=== PATIENT | male | born 1965 | race Caucasian/White ===

== ENCOUNTER 2022-09-25 14:26 | Emergency (ER) | payer MEDICARE, SELFPAY ==
[2022-09-25] VITALS (46 sets, daily range): BP systolic 118–161; BP diastolic 60–93; PULSE 42–72; RESP 12–32; TEMP 36.4; O2SAT 94–99; BMI 24.6
--- NOTE | 2022-09-25 14:34 | DI.RAD.S_ITS ---
PROCEDURE: XR CHEST 1V INDICATIONS: chest pain TECHNIQUE: One view of the chest was acquired. COMPARISON: None. FINDINGS: Surgical changes and devices: None. Lungs and pleura: Lungs are clear. No pleural effusions or pneumothorax. Mediastinum: Mediastinal contours appear normal. Heart size is normal. Bones and chest wall: No suspicious bony lesions. Overlying soft tissues appear unremarkable. IMPRESSION: No acute cardiopulmonary disease. Dictated by: Nas Mccord M.D. on 09/25/2022 at 15:51 Approved by: Nas Mccord M.D. on 09/25/2022 at 15:52
--- NOTE | 2022-09-25 14:52 | ED.CHESTPAIN ---
HPI - Chest Pain <Mehul Mott DO - Last Filed: 09/26/22 18:26> General Chief Complaint: Chest Pain Stated Complaint: Sent by cardioligst chest pain t-4 Time Seen by Provider: 09/25/22 14:34 Source: patient Mode of arrival: Ambulatory History of Present Illness HPI narrative: 57-year-old male smoker with history of hypertension recently diagnosed coronary artery disease presents with chest pain. He has been having increasing episodes of chest pain for least the past few weeks and had recently been evaluated by Cardiology from [place] and had a cardiac CT demonstrating findings consistent with the need for stenting. He is scheduled for heart catheterization and stents in a few days. He states that he is had increasing chest pressure and heaviness with exertion over the past few days. He now is having pain with increasing frequency while at rest. He does not take any aspirin or nitroglycerin. He is currently having 1 or 2/10 chest pain. When present he gets short of breath and diaphoretic. He was raking some leaves yesterday and developed significant chest pressure that resolved with time and rest. He denies nausea or vomiting. He denies any recent trauma or injury Related Data Home Medications Medication Instructions Recorded Confirmed rosuvastatin 40 mg tablet 40 mg PO BEDTIME 09/25/22 09/25/22 Allergies Allergy/AdvReac Type Severity Reaction Status Date / Time No Known Drug Allergies Allergy Verified 09/25/22 14:33 Review of Systems <Mehul Mott DO - Last Filed: 09/26/22 18:26> Review of Systems Narrative: GENERAL: See HPI HEENT: Denies sinus pain, ear pain, sore throat, difficulty swallowing, dizziness. RESPIRATORY: See HPI CARDIOVASCULAR: See HPI GASTROINTESTINAL: See HPI : Denies dysuria, frequency, incontinence, hematuria, urinary retention. MUSCULOSKELETAL: denies weakness, joint pain, or bony pain SKIN: Denies rash, skin lesions, or other NEUROLOGIC: Denies weakness, headache, numbness, change in speech, confusion, seizures, incoordination. PSYCHIATRIC: No concerning psychosocial issues. 12 point review of systems is negative except for those stated above Patient History <Mehul Mott DO - Last Filed: 09/26/22 18:26> Social History Smoking Status: Current every day smoker Smoking Status: Current every day smoker tobacco type: cigarettes Substance Use Type: does not use Exam <Mehul Mott DO - Last Filed: 09/26/22 18:26> Narrative Exam Narrative: GENERAL: [57] year old patient appears stated age. Well-developed patient, in mild distress. HEAD: Atraumatic. Normocephalic. EYES: Pupils equal round and reactive. Extraocular motions intact. No scleral icterus. No injection or drainage. ENT: Nose without bleeding, purulent drainage. Throat without erythema, tonsillar hypertrophy or exudate. Airway patent. NECK: Trachea midline. Non tender CARDIOVASCULAR: Regular rate and rhythm without murmurs, gallops, or rubs. RESPIRATORY: Clear to auscultation. Breath sounds equal bilaterally. No wheezes, rales, or rhonchi. GASTROINTESTINAL: Abdomen soft, non-tender, nondistended. EXTREMITIES: No edema or joint tenderness. BACK: Nontender without deformity or crepitance. No flank tenderness. NEURO: AOx3. SKIN: No rash or erythema of visible areas Initial Vital Signs Initial Vital Signs: Vital Signs Temperature 97.6 F 09/25/22 14:33 Pulse Rate 72 09/25/22 14:33 Respiratory Rate 18 09/25/22 14:33 Blood Pressure 153/92 H 09/25/22 14:33 Pulse Oximetry 98 09/25/22 14:33 Oxygen Delivery Method 09/25/22 14:33 <Sarah Ivory DO - Last Filed: 09/26/22 19:00> Initial Vital Signs Initial Vital Signs: Vital Signs Temperature 97.6 F 09/25/22 14:33 Pulse Rate 72 09/25/22 14:33 Respiratory Rate 18 09/25/22 14:33 Blood Pressure 153/92 H 09/25/22 14:33 Pulse Oximetry 98 09/25/22 14:33 Oxygen Delivery Method 09/25/22 14:33 Scores <DO Catherine Luna Last Filed: 09/26/22 18:26> HEART Score Heart Score history: Highly Suspicious Heart Score EKG: Non-Specific repolarization disturbance Heart Score Age: 45-64 years old Heart Score risk factors: > 3 risk factors or hx of atherosclerotic disease Heart Score troponin: < or = to normal limit Heart Score Total: 6 <Sarah Ivory DO - Last Filed: 09/26/22 19:00> HEART Score Heart Score Total: 6 Course <Mehulelly Mott DO - Last Filed: 09/26/22 18:26> Orders Ordered: ED Orders 09/26/22 12:36 Troponin & CK Cardiac Panel Stat 09/26/22 13:30 Partial Thromboplastin Time Q6H Sodium Chloride (Normal Saline 0.9%) 1,000 mls @ 150 mls/hr IV CONT [facility] Last Admin: 09/25/22 18:39 Dose: Not Given Documented By: ARMAAN Heparin Sodium/Dextrose (Heparin Drip) 25,000 unit in 500 mls @ 20 mls/hr IV CONT [facility]; Protocol Last Titration: 09/26/22 18:30 Dose: 1,000 units/hr, 20 mls/hr Documented By: Admin: 09/25/22 18:32 Dose: 1,000 units/hr, 20 mls/hr Documented By: ARMAAN Nitroglycerin (Nitroglycerin 0.4 Mg Sl Tab) 0.4 mg SL [id number] PRN PRN Reason: Chest Pain Last Admin: 09/25/22 18:29 Dose: 0.4 mg Documented By: Admin: 09/25/22 15:30 Dose: 0.4 mg Documented By: ARMAAN Discontinued Medications Aspirin (Aspirin 81 Mg Chew Tab) 324 mg PO NOW ONE Stop: 09/25/22 15:00 Last Admin: 09/25/22 15:27 Dose: 324 mg Documented By: ARMAAN Heparin Sodium (Porcine) (Heparin 5,000 Unit/Ml Vial) 5,000 unit IV NOW ONE Stop: 09/25/22 18:04 Last Admin: 09/25/22 18:31 Dose: 5,000 unit Documented By: ARMAAN Nitroglycerin (Nitroglycerin Oint 1 Inch/Gm Oint...G.) 0.5 inch TOP NOW ONE Stop: 09/25/22 18:48 Last Admin: 09/25/22 19:11 Dose: 0.5 inch Documented By: ARLINE Reevaluation(s) Reevaluation #1: Patient did have another quick episode of chest pain and this resolved with a single sublingual nitro, nitro placed ordered Consultations Consultation #1: call to [facility], he was quick to request patient be placed on heparin and initiate transfer process after discussion of patient's history and physical exam. They currently have no beds but are working on [facility]. Patient made aware, heparin ordered Vital Signs Vital signs: Vital Signs - 8 hr 09/26/22 11:00 09/26/22 11:15 09/26/22 11:30 Pulse Rate 46 L 52 L 46 L Respiratory Rate 22 23 19 Blood Pressure 09/26/22 11:45 09/26/22 12:00 09/26/22 12:15 Pulse Rate 48 L 49 L 41 L Respiratory Rate 18 25 H 17 Blood Pressure 09/26/22 12:30 09/26/22 12:45 09/26/22 13:00 Pulse Rate 40 L 50 L 41 L Respiratory Rate 21 23 20 Blood Pressure 09/26/22 13:15 09/26/22 13:30 09/26/22 13:45 Pulse Rate 50 L 51 L 46 L Respiratory Rate 22 28 H 22 Blood Pressure 09/26/22 14:00 09/26/22 14:15 09/26/22 14:30 Pulse Rate 48 L 48 L 46 L Respiratory Rate 22 21 24 Blood Pressure 09/26/22 14:45 09/26/22 15:00 09/26/22 15:15 Pulse Rate 47 L 46 L 47 L Respiratory Rate 20 24 29 H Blood Pressure 09/26/22 15:30 09/26/22 15:45 09/26/22 16:00 Pulse Rate 47 L 47 L 48 L Respiratory Rate 31 H 23 26 H Blood Pressure 09/26/22 16:15 09/26/22 16:30 09/26/22 16:58 Pulse Rate 41 L 54 L 57 L Respiratory Rate 24 24 17 Blood Pressure 09/26/22 17:00 09/26/22 17:15 09/26/22 17:30 Pulse Rate 45 L 47 L 46 L Respiratory Rate 18 21 24 Blood Pressure 09/26/22 17:45 09/26/22 18:00 09/26/22 18:15 Pulse Rate 45 L 47 L 46 L Respiratory Rate 19 20 18 Blood Pressure 09/26/22 18:32 Pulse Rate Respiratory Rate Blood Pressure 121/74 <Sarah Ivory, - Last Filed: 09/26/22 19:00> Orders Ordered: ED Orders 09/26/22 12:36 Troponin & CK Cardiac Panel Stat 09/26/22 13:30 Partial Thromboplastin Time Q6H Sodium Chloride (Normal Saline 0.9%) 1,000 mls @ 150 mls/hr IV CONT [facility] Last Admin: 09/25/22 18:39 Dose: Not Given Documented By: ARMAAN Heparin Sodium/Dextrose (Heparin Drip) 25,000 unit in 500 mls @ 20 mls/hr IV CONT [facility]; Protocol Last Titration: 09/26/22 18:30 Dose: 1,000 units/hr, 20 mls/hr Documented By: Admin: 09/25/22 18:32 Dose: 1,000 units/hr, 20 mls/hr Documented By: ARMAAN Nitroglycerin (Nitroglycerin 0.4 Mg Sl Tab) 0.4 mg SL [id number] PRN PRN Reason: Chest Pain Last Admin: 09/25/22 18:29 Dose: 0.4 mg Documented By: Admin: 09/25/22 15:30 Dose: 0.4 mg Documented By: ARMAAN Discontinued Medications Aspirin (Aspirin 81 Mg Chew Tab) 324 mg PO NOW ONE Stop: 09/25/22 15:00 Last Admin: 09/25/22 15:27 Dose: 324 mg Documented By: ARMAAN Heparin Sodium (Porcine) (Heparin 5,000 Unit/Ml Vial) 5,000 unit IV NOW ONE Stop: 09/25/22 18:04 Last Admin: 09/25/22 18:31 Dose: 5,000 unit Documented By: ARMAAN Nitroglycerin (Nitroglycerin Oint 1 Inch/Gm Oint...G.) 0.5 inch TOP NOW ONE Stop: 09/25/22 18:48 Last Admin: 09/25/22 19:11 Dose: 0.5 inch Documented By: ARLINE Vital Signs Vital signs: Vital Signs - 8 hr 09/26/22 11:00 09/26/22 11:15 09/26/22 11:30 Pulse Rate 46 L 52 L 46 L Respiratory Rate 22 23 19 Blood Pressure 09/26/22 11:45 09/26/22 12:00 09/26/22 12:15 Pulse Rate 48 L 49 L 41 L Respiratory Rate 18 25 H 17 Blood Pressure 09/26/22 12:30 09/26/22 12:45 09/26/22 13:00 Pulse Rate 40 L 50 L 41 L Respiratory Rate 21 23 20 Blood Pressure 09/26/22 13:15 09/26/22 13:30 09/26/22 13:45 Pulse Rate 50 L 51 L 46 L Respiratory Rate 22 28 H 22 Blood Pressure 09/26/22 14:00 09/26/22 14:15 09/26/22 14:30 Pulse Rate 48 L 48 L 46 L Respiratory Rate 22 21 24 Blood Pressure 09/26/22 14:45 09/26/22 15:00 09/26/22 15:15 Pulse Rate 47 L 46 L 47 L Respiratory Rate 20 24 29 H Blood Pressure 09/26/22 15:30 09/26/22 15:45 09/26/22 16:00 Pulse Rate 47 L 47 L 48 L Respiratory Rate 31 H 23 26 H Blood Pressure 09/26/22 16:15 09/26/22 16:30 09/26/22 16:58 Pulse Rate 41 L 54 L 57 L Respiratory Rate 24 24 17 Blood Pressure 09/26/22 17:00 09/26/22 17:15 09/26/22 17:30 Pulse Rate 45 L 47 L 46 L Respiratory Rate 18 21 24 Blood Pressure 09/26/22 17:45 09/26/22 18:00 09/26/22 18:15 Pulse Rate 45 L 47 L 46 L Respiratory Rate 19 20 18 Blood Pressure 09/26/22 18:32 Pulse Rate Respiratory Rate Blood Pressure 121/74 MDM - Chest Pain <Mehul Mott DO - Last Filed: 09/26/22 18:26> Lab Data Result diagrams: 09/25/22 15:05 09/25/22 15:05 Labs: Lab Results 09/25/22 09/25/22 09/25/22 Range/Units 15:00 15:05 15:05 WBC 7.9 (4.5-11.0) X10^3/uL RBC 4.92 (4.5-5.9) X10^6/uL Hgb 15.4 (13.5-17.5) g/dL Hct 45.6 (41-53) % MCV 92.8 (80-100) fL MCH 31.3 (26-34) PG MCHC 33.7 (30-36) % RDW 13.5 (11.6-14.8) % Plt Count 148 L (150-400) X10^3/uL Neut % (Auto) 74.3 (50-75) % Lymph % (Auto) 18.0 L (25-40) % Kimball % (Auto) 6.0 (3-14) % Eos % (Auto) 0.7 L (2-4) % Baso % (Auto) 1.0 (0-2) % Neut # (Auto) 5800 (1884-4384) /uL Lymph # (Auto) 1400 (7952-6494) /uL Kimball # (Auto) 500 (0-900) /uL Eos # (Auto) 100 (0-450) /uL Baso # (Auto) 100 (0-100) /uL ESR 2 (0-15) MM/HR PT 12.0 (10.1-12.7) SECONDS INR 1.0 (0.9-1.3) APTT 30 (26-36) SECONDS D-Dimer 235 (<500) ng/ml Sodium (137-145) mmol/L Potassium (3.4-5.1) mmol/L Chloride (98-107) mmol/L Carbon Dioxide (22-32) mmol/L BUN (9-20) mg/dL Creatinine (0.66-1.25) mg/dL Estimated GFR (>60) mL/min BUN/Creatinine Ratio (6-22) Glucose (70-100) mg/dL Calcium (8.4-10.2) mg/dL Total Bilirubin (0.2-1.3) mg/dL AST (17-59) IU/L ALT (<50) IU/L Alkaline Phosphatase (38-126) U/L Total Creatine Kinase (55-170) U/L CK-MB (CK-2) CK-MB (CK-2) Rel Index Troponin I (0.01-0.034) ng/mL C-Reactive Protein (<1.0) mg/dL NT-Pro-B Natriuret Pep (<125) pg/mL Total Protein (6.3-8.2) g/dL Albumin (3.5-5.0) g/dL Globulin (1.7-4.1) g/dL Albumin/Globulin Ratio (1.0-2.8) Lipase (23-300) U/L Procalcitonin (<0.5) ng/mL SARS-CoV-2 (PCR) (Negative) 12/09/25/22 09/25/22 Range/Units 15:05 15:05 15:05 WBC (4.5-11.0) X10^3/uL RBC (4.5-5.9) X10^6/uL Hgb (13.5-17.5) g/dL Hct (41-53) % MCV (80-100) fL MCH (26-34) PG MCHC (30-36) % RDW (11.6-14.8) % Plt Count (150-400) X10^3/uL Neut % (Auto) (50-75) % Lymph % (Auto) (25-40) % Kimball % (Auto) (3-14) % Eos % (Auto) (2-4) % Baso % (Auto) (0-2) % Neut # (Auto) (3424-7312) /uL Lymph # (Auto) (3215-6801) /uL Kimball # (Auto) (0-900) /uL Eos # (Auto) (0-450) /uL Baso # (Auto) (0-100) /uL ESR (0-15) MM/HR PT (10.1-12.7) SECONDS INR (0.9-1.3) APTT (26-36) SECONDS D-Dimer (<500) ng/ml Sodium 140 (137-145) mmol/L Potassium 4.2 (3.4-5.1) mmol/L Chloride 105 (98-107) mmol/L Carbon Dioxide 27 (22-32) mmol/L BUN 7 L (9-20) mg/dL Creatinine 0.84 (0.66-1.25) mg/dL Estimated GFR > 60 (>60) mL/min BUN/Creatinine Ratio 8.3 (6-22) Glucose 88 (70-100) mg/dL Calcium 9.1 (8.4-10.2) mg/dL Total Bilirubin 0.7 (0.2-1.3) mg/dL AST 20 (17-59) IU/L ALT 22 (<50) IU/L Alkaline Phosphatase 61 (38-126) U/L Total Creatine Kinase 71 (55-170) U/L CK-MB (CK-2) TNP CK-MB (CK-2) Rel Index TNP Troponin I < 0.012 (0.01-0.034) ng/mL C-Reactive Protein < 0.5 (<1.0) mg/dL NT-Pro-B Natriuret Pep 42 (<125) pg/mL Total Protein 7.8 (6.3-8.2) g/dL Albumin 4.7 (3.5-5.0) g/dL Globulin 3.1 (1.7-4.1) g/dL Albumin/Globulin Ratio 1.5 (1.0-2.8) Lipase 52 (23-300) U/L Procalcitonin 0.05 (<0.5) ng/mL SARS-CoV-2 (PCR) Negative (Negative) 09/25/22 09/26/22 09/26/22 Range/Units 18:27 00:26 06:15 WBC (4.5-11.0) X10^3/uL RBC (4.5-5.9) X10^6/uL Hgb (13.5-17.5) g/dL Hct (41-53) % MCV (80-100) fL MCH (26-34) PG MCHC (30-36) % RDW (11.6-14.8) % Plt Count (150-400) X10^3/uL Neut % (Auto) (50-75) % Lymph % (Auto) (25-40) % Kimball % (Auto) (3-14) % Eos % (Auto) (2-4) % Baso % (Auto) (0-2) % Neut # (Auto) (4530-7922) /uL Lymph # (Auto) (7834-8693) /uL Kimball # (Auto) (0-900) /uL Eos # (Auto) (0-450) /uL Baso # (Auto) (0-100) /uL ESR (0-15) MM/HR PT (10.1-12.7) SECONDS INR (0.9-1.3) APTT 71 H D 55 H D (26-36) SECONDS D-Dimer (<500) ng/ml Sodium (137-145) mmol/L Potassium (3.4-5.1) mmol/L Chloride (98-107) mmol/L Carbon Dioxide (22-32) mmol/L BUN (9-20) mg/dL Creatinine (0.66-1.25) mg/dL Estimated GFR (>60) mL/min BUN/Creatinine Ratio (6-22) Glucose (70-100) mg/dL Calcium (8.4-10.2) mg/dL Total Bilirubin (0.2-1.3) mg/dL AST (17-59) IU/L ALT (<50) IU/L Alkaline Phosphatase (38-126) U/L Total Creatine Kinase 64 (55-170) U/L CK-MB (CK-2) TNP CK-MB (CK-2) Rel Index TNP Troponin I < 0.012 (0.01-0.034) ng/mL C-Reactive Protein (<1.0) mg/dL NT-Pro-B Natriuret Pep (<125) pg/mL Total Protein (6.3-8.2) g/dL Albumin (3.5-5.0) g/dL Globulin (1.7-4.1) g/dL Albumin/Globulin Ratio (1.0-2.8) Lipase (23-300) U/L Procalcitonin (<0.5) ng/mL SARS-CoV-2 (PCR) (Negative) 09/26/22 09/26/22 Range/Units 12:36 13:30 WBC (4.5-11.0) X10^3/uL RBC (4.5-5.9) X10^6/uL Hgb (13.5-17.5) g/dL Hct (41-53) % MCV (80-100) fL MCH (26-34) PG MCHC (30-36) % RDW (11.6-14.8) % Plt Count (150-400) X10^3/uL Neut % (Auto) (50-75) % Lymph % (Auto) (25-40) % Kimball % (Auto) (3-14) % Eos % (Auto) (2-4) % Baso % (Auto) (0-2) % Neut # (Auto) (4733-0398) /uL Lymph # (Auto) (0715-3215) /uL Kimball # (Auto) (0-900) /uL Eos # (Auto) (0-450) /uL Baso # (Auto) (0-100) /uL ESR (0-15) MM/HR PT (10.1-12.7) SECONDS INR (0.9-1.3) APTT 51 H (26-36) SECONDS D-Dimer (<500) ng/ml Sodium (137-145) mmol/L Potassium (3.4-5.1) mmol/L Chloride (98-107) mmol/L Carbon Dioxide (22-32) mmol/L BUN (9-20) mg/dL Creatinine (0.66-1.25) mg/dL Estimated GFR (>60) mL/min BUN/Creatinine Ratio (6-22) Glucose (70-100) mg/dL Calcium (8.4-10.2) mg/dL Total Bilirubin (0.2-1.3) mg/dL AST (17-59) IU/L ALT (<50) IU/L Alkaline Phosphatase (38-126) U/L Total Creatine Kinase 54 L (55-170) U/L CK-MB (CK-2) TNP CK-MB (CK-2) Rel Index TNP Troponin I < 0.012 (0.01-0.034) ng/mL C-Reactive Protein (<1.0) mg/dL NT-Pro-B Natriuret Pep (<125) pg/mL Total Protein (6.3-8.2) g/dL Albumin (3.5-5.0) g/dL Globulin (1.7-4.1) g/dL Albumin/Globulin Ratio (1.0-2.8) Lipase (23-300) U/L Procalcitonin (<0.5) ng/mL SARS-CoV-2 (PCR) (Negative) ECG Data Interpretation: [1506] EKG is normal sinus rhythm rate [ 73] and free of any signs of ischemia or ectopy. No ST segmental elevation or depression. No T wave inversions MDM Narrative Medical decision making narrative: Cachorro 09/25/22 5580: Patient seen evaluated by myself patient has had intermittent chest pain was scheduled have an outpatient cardiac catheterization for stable angina which has now become unstable. Patient is currently on heparin drip, has nitro paste he states he was having some chest pain he is not describing any new changes or worsening changes. Plan for transfer he has been accepted by Cardiology at [place] but waiting for bed assignment discussed with patient if worsening changes would repeat troponin, EKGs and likely add nitro drip. We will continue to monitor the patient overnight high likelihood that patient will be here into tomorrow uneven possibly several more days. Patient case was discussed with bi data architect that is spoke with Dr. Mott, they do not need additional troponins if develops worsening chest pain can go ahead start nitro drip have not need to so far. Waiting for placement but they are planning to take for catheterization once patient arrives in [place]. Patient signed out to Dr. Mott while awaiting bed assignment. Patient continues to be pain free [0700] ([facility]) Patient received in sign out from [Cachorro]. I have reviewed the clinical course. Patient continues to be pain-free 1245 -repeat EKG. No ischemic change. Labs redrawn including troponin which remains unchanged. Call to [facility] bi data architect to review the case. He agrees that he would prefer to still have the patient come to them currently no bed available but he will discuss with the transfer center to try to speed the process 1545 -cardiology from [place] as called back suggesting that there is increased likelihood of an open bed. 1600 - Dr. Dominique ([facility] hospitalist) happy to accept patient <Sarah Ivory, - Last Filed: 09/26/22 19:00> Lab Data Labs: Lab Results 09/25/22 09/25/22 09/25/22 Range/Units 15:00 15:05 15:05 WBC 7.9 (4.5-11.0) X10^3/uL RBC 4.92 (4.5-5.9) X10^6/uL Hgb 15.4 (13.5-17.5) g/dL Hct 45.6 (41-53) % MCV 92.8 (80-100) fL MCH 31.3 (26-34) PG MCHC 33.7 (30-36) % RDW 13.5 (11.6-14.8) % Plt Count 148 L (150-400) X10^3/uL Neut % (Auto) 74.3 (50-75) % Lymph % (Auto) 18.0 L (25-40) % Kimball % (Auto) 6.0 (3-14) % Eos % (Auto) 0.7 L (2-4) % Baso % (Auto) 1.0 (0-2) % Neut # (Auto) 5800 (6489-4296) /uL Lymph # (Auto) 1400 (7128-1971) /uL Kimball # (Auto) 500 (0-900) /uL Eos # (Auto) 100 (0-450) /uL Baso # (Auto) 100 (0-100) /uL ESR 2 (0-15) MM/HR PT 12.0 (10.1-12.7) SECONDS INR 1.0 (0.9-1.3) APTT 30 (26-36) SECONDS D-Dimer 235 (<500) ng/ml Sodium (137-145) mmol/L Potassium (3.4-5.1) mmol/L Chloride (98-107) mmol/L Carbon Dioxide (22-32) mmol/L BUN (9-20) mg/dL Creatinine (0.66-1.25) mg/dL Estimated GFR (>60) mL/min BUN/Creatinine Ratio (6-22) Glucose (70-100) mg/dL Calcium (8.4-10.2) mg/dL Total Bilirubin (0.2-1.3) mg/dL AST (17-59) IU/L ALT (<50) IU/L Alkaline Phosphatase (38-126) U/L Total Creatine Kinase (55-170) U/L CK-MB (CK-2) CK-MB (CK-2) Rel Index Troponin I (0.01-0.034) ng/mL C-Reactive Protein (<1.0) mg/dL NT-Pro-B Natriuret Pep (<125) pg/mL Total Protein (6.3-8.2) g/dL Albumin (3.5-5.0) g/dL Globulin (1.7-4.1) g/dL Albumin/Globulin Ratio (1.0-2.8) Lipase (23-300) U/L Procalcitonin (<0.5) ng/mL SARS-CoV-2 (PCR) (Negative) 09/25/22 09/25/22 09/25/22 Range/Units 15:05 15:05 15:05 WBC (4.5-11.0) X10^3/uL RBC (4.5-5.9) X10^6/uL Hgb (13.5-17.5) g/dL Hct (41-53) % MCV (80-100) fL MCH (26-34) PG MCHC (30-36) % RDW (11.6-14.8) % Plt Count (150-400) X10^3/uL Neut % (Auto) (50-75) % Lymph % (Auto) (25-40) % Kimball % (Auto) (3-14) % Eos % (Auto) (2-4) % Baso % (Auto) (0-2) % Neut # (Auto) (3446-2713) /uL Lymph # (Auto) (3261-8310) /uL Kimball # (Auto) (0-900) /uL Eos # (Auto) (0-450) /uL Baso # (Auto) (0-100) /uL ESR (0-15) MM/HR PT (10.1-12.7) SECONDS INR (0.9-1.3) APTT (26-36) SECONDS D-Dimer (<500) ng/ml Sodium 140 (137-145) mmol/L Potassium 4.2 (3.4-5.1) mmol/L Chloride 105 (98-107) mmol/L Carbon Dioxide 27 (22-32) mmol/L BUN 7 L (9-20) mg/dL Creatinine 0.84 (0.66-1.25) mg/dL Estimated GFR > 60 (>60) mL/min BUN/Creatinine Ratio 8.3 (6-22) Glucose 88 (70-100) mg/dL Calcium 9.1 (8.4-10.2) mg/dL Total Bilirubin 0.7 (0.2-1.3) mg/dL AST 20 (17-59) IU/L ALT 22 (<50) IU/L Alkaline Phosphatase 61 (38-126) U/L Total Creatine Kinase 71 (55-170) U/L CK-MB (CK-2) TNP CK-MB (CK-2) Rel Index TNP Troponin I < 0.012 (0.01-0.034) ng/mL C-Reactive Protein < 0.5 (<1.0) mg/dL NT-Pro-B Natriuret Pep 42 (<125) pg/mL Total Protein 7.8 (6.3-8.2) g/dL Albumin 4.7 (3.5-5.0) g/dL Globulin 3.1 (1.7-4.1) g/dL Albumin/Globulin Ratio 1.5 (1.0-2.8) Lipase 52 (23-300) U/L Procalcitonin 0.05 (<0.5) ng/mL SARS-CoV-2 (PCR) Negative (Negative) 09/25/22 09/26/22 09/26/22 Range/Units 18:27 00:26 06:15 WBC (4.5-11.0) X10^3/uL RBC (4.5-5.9) X10^6/uL Hgb (13.5-17.5) g/dL Hct (41-53) % MCV (80-100) fL MCH (26-34) PG MCHC (30-36) % RDW (11.6-14.8) % Plt Count (150-400) X10^3/uL Neut % (Auto) (50-75) % Lymph % (Auto) (25-40) % Kimball % (Auto) (3-14) % Eos % (Auto) (2-4) % Baso % (Auto) (0-2) % Neut # (Auto) (3141-2762) /uL Lymph # (Auto) (4462-6409) /uL Kimball # (Auto) (0-900) /uL Eos # (Auto) (0-450) /uL Baso # (Auto) (0-100) /uL ESR (0-15) MM/HR PT (10.1-12.7) SECONDS INR (0.9-1.3) APTT 71 H D 55 H D (26-36) SECONDS D-Dimer (<500) ng/ml Sodium (137-145) mmol/L Potassium (3.4-5.1) mmol/L Chloride (98-107) mmol/L Carbon Dioxide (22-32) mmol/L BUN (9-20) mg/dL Creatinine (0.66-1.25) mg/dL Estimated GFR (>60) mL/min BUN/Creatinine Ratio (6-22) Glucose (70-100) mg/dL Calcium (8.4-10.2) mg/dL Total Bilirubin (0.2-1.3) mg/dL AST (17-59) IU/L ALT (<50) IU/L Alkaline Phosphatase (38-126) U/L Total Creatine Kinase 64 (55-170) U/L CK-MB (CK-2) TNP CK-MB (CK-2) Rel Index TNP Troponin I < 0.012 (0.01-0.034) ng/mL C-Reactive Protein (<1.0) mg/dL NT-Pro-B Natriuret Pep (<125) pg/mL Total Protein (6.3-8.2) g/dL Albumin (3.5-5.0) g/dL Globulin (1.7-4.1) g/dL Albumin/Globulin Ratio (1.0-2.8) Lipase (23-300) U/L Procalcitonin (<0.5) ng/mL SARS-CoV-2 (PCR) (Negative) 09/26/22 09/26/22 Range/Units 12:36 13:30 WBC (4.5-11.0) X10^3/uL RBC (4.5-5.9) X10^6/uL Hgb (13.5-17.5) g/dL Hct (41-53) % MCV (80-100) fL MCH (26-34) PG MCHC (30-36) % RDW (11.6-14.8) % Plt Count (150-400) X10^3/uL Neut % (Auto) (50-75) % Lymph % (Auto) (25-40) % Kimball % (Auto) (3-14) % Eos % (Auto) (2-4) % Baso % (Auto) (0-2) % Neut # (Auto) (1748-5005) /uL Lymph # (Auto) (0759-7505) /uL Kimball # (Auto) (0-900) /uL Eos # (Auto) (0-450) /uL Baso # (Auto) (0-100) /uL ESR (0-15) MM/HR PT (10.1-12.7) SECONDS INR (0.9-1.3) APTT 51 H (26-36) SECONDS D-Dimer (<500) ng/ml Sodium (137-145) mmol/L Potassium (3.4-5.1) mmol/L Chloride (98-107) mmol/L Carbon Dioxide (22-32) mmol/L BUN (9-20) mg/dL Creatinine (0.66-1.25) mg/dL Estimated GFR (>60) mL/min BUN/Creatinine Ratio (6-22) Glucose (70-100) mg/dL Calcium (8.4-10.2) mg/dL Total Bilirubin (0.2-1.3) mg/dL AST (17-59) IU/L ALT (<50) IU/L Alkaline Phosphatase (38-126) U/L Total Creatine Kinase 54 L (55-170) U/L CK-MB (CK-2) TNP CK-MB (CK-2) Rel Index TNP Troponin I < 0.012 (0.01-0.034) ng/mL C-Reactive Protein (<1.0) mg/dL NT-Pro-B Natriuret Pep (<125) pg/mL Total Protein (6.3-8.2) g/dL Albumin (3.5-5.0) g/dL Globulin (1.7-4.1) g/dL Albumin/Globulin Ratio (1.0-2.8) Lipase (23-300) U/L Procalcitonin (<0.5) ng/mL SARS-CoV-2 (PCR) (Negative) MDM Narrative Medical decision making narrative: Cachorro 09/25/22 6618: Patient seen evaluated by myself patient has had intermittent chest pain was scheduled have an outpatient cardiac catheterization for stable angina which has now become unstable. Patient is currently on heparin drip, has nitro paste he states he was having some chest pain he is not describing any new changes or worsening changes. Plan for transfer he has been accepted by [facility]iology at [place] but waiting for bed assignment discussed with patient if worsening changes would repeat troponin, EKGs and likely add nitro drip. We will continue to monitor the patient overnight high likelihood that patient will be here into tomorrow uneven possibly several more days. Patient case was discussed with bi data architect that is spoke with Dr. Mott, they do not need additional troponins if develops worsening chest pain can go ahead start nitro drip have not need to so far. Waiting for placement but they are planning to take for catheterization once patient arrives in [place]. Patient signed out to Dr. Mott while awaiting bed assignment. Critical Care Time <Mehul Mott, DO - Last Filed: 09/26/22 18:26> Critical Care Time Critical Care Time: Yes Total Critical Care Time: 45 Attestation: The high probability of a clinically significant, sudden or life threatening deterioration of the [GI] system(s) required my full and direct attention, intervention and personal management. The aggregate critical care time was [45] minutes. This time is in addition to time spent performing reported procedures but includes the following: [x] Data Review and interpretation [x] Patient assessment and monitoring of vital signs []x Documentation [x] Medication orders and management Discharge Plan Departure Patient Disposition: [facility] Clinical Impression: Unstable angina Prescriptions: No Action rosuvastatin 40 mg tablet 40 mg PO BEDTIME Label Comments: TAKE ONE TABLET BY MOUTH ONE TIME DAILY Referrals: Vitor Winslow MD [Primary Care Provider] -
[2022-09-25 15:25] LABS: Add Manual Diff / Slide Review NO; Basophils Absolute Auto 100 /uL (0-100); Eosinophils Absolute Auto 100 /uL (0-450); Eosinophils Percent Auto 0.7 % (2-4); Hematocrit 45.6 % (41-53); Hemoglobin 15.4 g/dL (13.5-17.5); Lymphocytes Absolute Auto 1400 /uL (1100-4500); Mean Corpuscular HGB Conc 33.7 % (30-36); Mean Corpuscular Hemoglobin 31.3 PG (26-34); Mean Corpuscular Volume 92.8 fL (80-100); Monocytes Absolute Auto 500 /uL (0-900); Neutrophils Absolute Auto 5800 /uL (1500-7000); Neutrophils Percent Auto 74.3 % (50-75); Platelet Count 148 X10^3/uL (150-400); Red Blood Cell Count 4.92 X10^6/uL (4.5-5.9); Red Cell Distribution Width 13.5 % (11.6-14.8); White Blood Cell Count 7.9 X10^3/uL (4.5-11.0)
[2022-09-25] MEDS: ASPIRIN 81 MG CHEW TAB 324 MG PO (15:27)
[2022-09-25] MEDS: NITROGLYCERIN 0.4 MG SL TAB SL ×2 (15:30→18:29)
[2022-09-25 15:34] LABS: COVID19 -Nasal RAPID Negative (Negative)
[2022-09-25 15:44] LABS: Alanine Aminotransferase 22 IU/L (<50); Albumin 4.7 g/dL (3.5-5.0); Albumin Globulin Ratio 1.5 (1.0-2.8); Alkaline Phosphatase 61 U/L (38-126); Aspartate Aminotransferase 20 IU/L (17-59); BUN Creatinine Ratio 8.3 (6-22); Bilirubin Total 0.7 mg/dL (0.2-1.3); Blood Urea Nitrogen 7 mg/dL (9-20); Calcium 9.1 mg/dL (8.4-10.2); Carbon Dioxide 27 mmol/L (22-32); Chloride 105 mmol/L (98-107); Creatine Kinase 71 U/L (55-170); Estimated Glomerular Filt Rate > 60 mL/min (>60); Globulin 3.1 g/dL (1.7-4.1); Glucose 88 mg/dL (70-100); Lipase 52 U/L (23-300); Potassium 4.2 mmol/L (3.4-5.1); Sodium 140 mmol/L (137-145); Total Protein 7.8 g/dL (6.3-8.2)
[2022-09-25 15:55] LABS: Troponin I < 0.012 ng/mL (0.01-0.034)
[2022-09-25 16:00] LABS: D Dimer 235 ng/ml (<500); Procalcitonin 0.05 ng/mL (<0.5)
[2022-09-25 16:21] LABS: Erythrocyte Sedimentation Rate 2 MM/HR (0-15)
[2022-09-25 16:56] LABS: C-Reactive Protein Quant < 0.5 mg/dL (<1.0); HEMOLYSIS 30 (0-50)
[2022-09-25 17:03] LABS: NT-proBNP (BNP-Adult 18+) 42 pg/mL (<125)
[2022-09-25] MEDS: HEPARIN 5,000 UNIT/ML VIAL 5000 UNIT IV (18:31)
[2022-09-25] MEDS: HEPARIN DRIP 25,000 UNIT/500 ML IV.SOLN 20 UNIT IV (18:32)
[2022-09-25 18:46] LABS: Creatine Kinase 64 U/L (55-170)
[2022-09-25 18:59] LABS: Troponin I < 0.012 ng/mL (0.01-0.034)
[2022-09-25] MEDS: NITROGLYCERIN OINT 1 INCH/GM OINT...G. 0.5 INCH TOP (19:11)
[2022-09-25 21:32] LABS: PTT Partial Thromboplastin Tim 30 SECONDS (26-36)
[2022-09-26] VITALS (79 sets, daily range): BP systolic 104–130; BP diastolic 45–78; PULSE 39–68; RESP 14–36
[2022-09-26 00:47] LABS: PTT Partial Thromboplastin Tim 71 SECONDS (26-36)
[2022-09-26 06:34] LABS: PTT Partial Thromboplastin Tim 55 SECONDS (26-36)
[2022-09-26 13:10] LABS: Creatine Kinase 54 U/L (55-170)
[2022-09-26 13:23] LABS: Troponin I < 0.012 ng/mL (0.01-0.034)
[2022-09-26 13:52] LABS: PTT Partial Thromboplastin Tim 51 SECONDS (26-36)
== END 2022-09-26 19:00 | disposition short-term general hospital (02) ==
PROVIDERS: Emergency Provider Emergency Medicine; PCP Specialist
DX: I20.0 Unstable angina (principal); R07.9 Chest pain, unspecified; Z20.822 Contact with and (suspected) exposure to COVID-19
CPT/HCPCS: 36415; 71045; 80053; 82550; 83690; 83880; 84145; 84484; 85025; 85379; 85610; 85651; 85730; 86140; 87635; 93005; 93010; 96365; 96366; 96375; 99284; 99291; C9803; J1644